=== PATIENT | female | born 1955 | race Caucasian/White ===

== ENCOUNTER 2016-08-23 10:41 | Emergency (ER) | payer OTHER ==
[2016-08-23 10:43] VITALS: BP 151/102; PULSE 116; RESP 20; TEMP 97.5; O2SAT 99
[2016-08-23 11:21] VITALS: BP 137/88
--- NOTE | 2016-08-23 11:52 | PD ---
HPI Chief Complaint: Syncope/Near-Syncope Time Seen by Provider: 11:52 Travel History International Travel<30 days: No Contact w/Intl Traveler<30days: No Traveled to known affect area: No History of Present Illness HPI 60-year-old female presents to the emergency department for evaluation of left lower back pain for 2 days with several episodes of syncope. Patient states that she was on a 3 day cruise and just got off the [place] this morning. States that yesterday afternoon she began to have left lower back pain that progressed into last night. States that she thinks it is secondary to laying at an angle on a hard beachchair and then walking the 9 flights of steps on the cruise ship for 3 days. States that the pain is aggravated with moving from a sitting to standing position. Alleviated with rest. States that last night she was in bed and went to stand up to go to the bathroom when she had the severe sharp pain in her left lower back causing her to become clammy and passed out falling forward hitting the left forehead on the floor. States that she did lose consciousness for approximately 2 seconds. States that she immediately woke up and her tried to help her up to the bathroom when she passed out a second time, after the bathroom he tried to help her to the bed and she passed out a third time. All of these lasting approximately 2 seconds at a time. States that after this episode she had no further episodes of syncope. She states that she never had any lightheadedness, dizziness, nausea, vomiting, chest pain, shortness of breath, numbness or tingling. States that today the pain is still present. She did take ibuprofen with some improvement of symptoms. States that she has had this pain in the past many years ago. Denies any injury or trauma to her lower back. Denies any medical conditions. States that she does have anxiety and whenever she thinks there may be something wrong with her she becomes very anxious. No other complaints. PFSH Past Medical History Medical History: Denies Significant Hx Cardiovascular Problems: Yes (MITRAL VALVE PROLAPSE) Influenza Vaccination: Yes ?: Not Past Surgical History Tonsillectomy: Yes Social History Alcohol Use: Yes (ocas) Tobacco Use: No Substance Use: No Allergies-Medications (Allergen,Severity, Reaction): Coded Allergies: No Known Allergies (Unverified , 08/23/16) Reported Meds & Prescriptions Reported Meds & Active Scripts Active No Active Prescriptions or Reported Medications Review of Systems Except as stated in HPI: all other systems reviewed are Neg Physical Exam Narrative GENERAL: Well-nourished and well-developed pleasant female patient in no acute distress, anxious appearing. SKIN: Warm and dry. 1 cm superficial laceration just above left eyebrow. HEAD: Normocephalic and atraumatic. EYES: No injection, drainage, or hyphema noted. PERRLA. EOMI. ENT: No nasal drainage noted. Oropharynx is clear. NECK: Supple and the trachea is midline. CARDIOVASCULAR: Regular rate and rhythm. RESPIRATORY: Breath sounds are equal bilaterally with no accessory muscle use, wheezing, rhonchi, or crackles. GASTROINTESTINAL: Abdomen is soft, non-tender, and nondistended. MUSCULOSKELETAL: No obvious deformities, swelling, cyanosis, or ecchymosis is present throughout the upper and lower extremities. Patient has full range of motion without any signs of neurovascular compromise. Strength 5/5 upper and lower extremities and equal bilaterally. BACK: Tenderness to palpation of left lumbar paraspinal muscles and over left SI joint. Negative SLR. Nontender without any obvious deformities, bony point tenderness, or crepitus noted throughout the thoracic and lumbar vertebrae. NEUROLOGICAL: Awake, alert, and oriented. Normal speech and gait. Normal finger to nose test. Normal rapid alternating movements. Normal [id number] test. Cranial nerves are grossly intact. Data Data Last Documented VS Vital Signs Date Time Temp Pulse Resp B/P Pulse Ox O2 Delivery O2 Flow Rate FiO2 08/23/16 12:57 77 16 139/74 99 Room Air 08/23/16 10:43 97.5 Orders Electrocardiogram (08/23/16 11:30) Complete Blood Count With Diff (08/23/16 11:51) Comprehensive Metabolic Panel (08/23/16 11:51) Troponin I (08/23/16 11:51) Chest, Single Ap (08/23/16 11:51) Ct Brain W/O Iv Contrast(Rout) (08/23/16 11:51) Ecg Monitoring (08/23/16 11:51) Iv Access Insert/Monitor (08/23/16 11:51) Oximetry (08/23/16 11:51) Ketorolac Inj (Toradol Inj) (08/23/16 12:45) Labs Laboratory Tests Test 08/23/16 12:00 White Blood Count 7.0 TH/MM3 Red Blood Count 4.80 MIL/MM3 Hemoglobin 14.2 GM/DL Hematocrit 42.0 % Mean Corpuscular Volume 87.4 FL Mean Corpuscular Hemoglobin 29.6 PG Mean Corpuscular Hemoglobin 33.9 % Concent Red Cell Distribution Width 13.0 % Platelet Count 303 TH/MM3 Mean Platelet Volume 7.9 FL Neutrophils (%) (Auto) 83.7 % Lymphocytes (%) (Auto) 9.5 % Monocytes (%) (Auto) 6.4 % Eosinophils (%) (Auto) 0.0 % Basophils (%) (Auto) 0.4 % Neutrophils # (Auto) 5.9 TH/MM3 Lymphocytes # (Auto) 0.7 TH/MM3 Monocytes # (Auto) 0.5 TH/MM3 Eosinophils # (Auto) 0.0 TH/MM3 Basophils # (Auto) 0.0 TH/MM3 CBC Comment DIFF FINAL Differential Comment Sodium Level 141 MEQ/L Potassium Level 3.5 MEQ/L Chloride Level 103 MEQ/L Carbon Dioxide Level 29.3 MEQ/L Anion Gap 9 MEQ/L Blood Urea Nitrogen 13 MG/DL Creatinine 0.94 MG/DL Estimat Glomerular Filtration 61 ML/MIN Rate Random Glucose 119 MG/DL Calcium Level 9.1 MG/DL Total Bilirubin 0.7 MG/DL Aspartate Amino Transf 20 U/L (AST/SGOT) Alanine Aminotransferase 23 U/L (ALT/SGPT) Alkaline Phosphatase 68 U/L Troponin I LESS THAN 0.02 NG/ML Total Protein 7.8 GM/DL Albumin 3.9 GM/DL [facility] Medical Decision Making Medical Screen Exam Complete: Yes Emergency Medical Condition: Yes Differential Diagnosis Sciatica versus lumbar radiculopathy versus muscle strain versus muscle spasm versus syncope versus orthostatic versus anxiety versus electrolyte abnormality Narrative Course 60-year-old female presents to the emergency department for evaluation of left lower back pain with 3 episodes of syncope last night while she was in severe pain. Patient is afebrile, vital signs are stable. On physical examination she has some mild left lower back pain no bony point tenderness or abnormalities. No focal neurologic deficits. EKG shows sinus tachycardia with a ventricular rate of 103 beats per minute, no acute ST elevations or depressions. IV access is obtained, labs have been drawn and sent. CBC is unremarkable. CMP is unremarkable. Troponin is less than 0.02. Head CT is negative for any acute abnormalities. Chest x-ray is negative. Patient reassessed and reports improvement of symptoms after Toradol. She has remained stable and without complaint while here in the emergency department. This is sciatica with likely a psychogenic or orthostatic syncope. Discussed supportive care with the patient. She'll be discharged with NSAIDs and muscle relaxers. Advised follow-up with her PCP. Patient verbalizes understanding and agreement with treatment plan. I discussed the case with my attending physician Dr. Grey who is aware of the patients history, physical examination findings, and treatment plan. Diagnosis Primary Impression: Sciatica of left side Additional Impression: Syncope Qualified Code: R55 - Syncope, unspecified syncope type Referrals: Primary Care Physician Patient Instructions: General Instructions, Sciatica (ED), Syncope (ED) Additional Instructions: Performed gentle stretches. Apply ice or heat to help alleviate symptoms. Take medications as prescribed with food and a full glass of water. Do not take Robaxin with alcohol or while driving. Follow-up with your Primary Care Physician. Return to the ED for any acute worsening of symptoms. Med/Other Pt SpecificInfo: Prescription(s) given Scripts Ibuprofen 800 Mg [id number] Mg PO Q8H PRN (Pain/Inflammation) 7 Days Ref 0 Prov:Luis Grey MD 08/23/16 Methocarbamol (Robaxin)500 Mg [id number] Mg PO TID #20 TAB Ref 0 Prov:Luis Grey MD 08/23/16 Disposition: 01 DISCHARGE HOME Condition: Stable [place] rGay Aug 23, 2016 11:52
[2016-08-23 12:20] LABS: AUTOMATED NEUTROPHIL # 5.9 TH/MM3 (1.8-7.7); BASOPHIL % 0.4 % (0.0-2.0); HEMO FLAGS DIFF FINAL; LYMPH % 9.5 % (9.0-44.0); LYMPHOCYTE # 0.7 TH/MM3 (1.0-4.8); MEAN CELL VOLUME 87.4 FL (80.0-100.0); MEAN CORPUSCULAR HEMOGLOBIN 29.6 PG (27.0-34.0); MEAN CORPUSCULAR HGB CONC 33.9 % (32.0-36.0); MONO % 6.4 % (0.0-8.0); NEUT % 83.7 % (16.0-70.0); PLATELET COUNT 303 TH/MM3 (150-450)
[2016-08-23 12:39] LABS: ANION GAP 9 MEQ/L (5-15); AST (GOT) 20 U/L (15-37); BICARBONATE 29.3 MEQ/L (21.0-32.0); BLOOD UREA NITROGEN 13 MG/DL (7-18); CHLORIDE 103 MEQ/L (98-107); GLOMERULAR FILTRATION RATE 61 ML/MIN (>89); POTASSIUM 3.5 MEQ/L (3.5-5.1); SODIUM (NA) 141 MEQ/L (136-145)
[2016-08-23 12:44] LABS: ALKALINE PHOSPHATASE 68 U/L (45-117); ALT (GPT) 23 U/L (10-53); TOTAL BILIRUBIN ADULT 0.7 MG/DL (0.2-1.0)
[2016-08-23] MEDS ORDERED: KETOROLAC TROMETHAMINE 30 MG/ML (IVP) VIAL IV PUSH ONE (12:45)
[2016-08-23 12:57] VITALS: BP 139/74; PULSE 77; RESP 16; O2SAT 99
--- NOTE | 2016-08-23 13:02 | RADRPT ---
EXAM DATE/TIME: 08/23/2016 12:22 [facility] COMPARISON: No previous studies available for comparison. INDICATIONS : Syncopal episode. RADIATION DOSE: 56.35 CTDIvol (mGy) MEDICAL HISTORY : Cardiovascular disease. SURGICAL HISTORY : Tonsillectomy. ENCOUNTER: Initial ACUITY: 1 day PAIN SCALE: 0/10 LOCATION: cranial TECHNIQUE: Multiple contiguous axial images were obtained of the head. Using automated exposure control and adj ustment of the mA and/or kV according to patient size, radiation dose was kept as low as reasonably a chievable to obtain optimal diagnostic quality images. FINDINGS: CEREBRUM: The ventricles are normal for age. No evidence of midline shift, mass lesion, hemorrhage or acute in farction. No extra-axial fluid collections are seen. POSTERIOR FOSSA: The cerebellum and brainstem are intact. The 4th ventricle is midline. The cerebellopontine angle i s unremarkable. EXTRACRANIAL: The visualized portion of the orbits is intact. SKULL: The calvaria is intact. No evidence of skull fracture. CONCLUSION: 1. No acute intracranial abnormality is identified. Gio Lamar MD on August 23, 2016 at 13:00 Board Certified Radiologist. This report was verified electronically.
--- NOTE | 2016-08-23 13:33 | RADRPT ---
EXAM DATE/TIME: 08/23/2016 12:50 [facility] COMPARISON: No previous studies available for comparison. INDICATIONS : Syncope today, pain in back and chest, fell and hit head MEDICAL HISTORY : mitral valve prolapse SURGICAL HISTORY : None. ENCOUNTER: Initial ACUITY: 1 day PAIN SCORE: 5/10 LOCATION: Bilateral chest FINDINGS: A single view of the chest demonstrates the lungs to be symmetrically aerated without evidence of mas s, infiltrate or effusion. The cardiomediastinal contours are unremarkable. Osseous structures are intact. Scoliosis of the thoracolumbar spine is noted. CONCLUSION: No acute disease. Scoliosis of the thoracolumbar spine. Fausto Giordano MD on August 23, 2016 at 13:31 Board Certified Radiologist. This report was verified electronically.
[2016-08-23] MEDS ORDERED: IBUP800T23 PO (13:38)
[2016-08-23] MEDS ORDERED: ROBA500T PO (13:38)
--- NOTE | 2016-08-23 14:15 | EKG ---
Date Performed: 08/23/2016 Time Performed: 11:35:47 PTAGE: 60 years EKG: SINUS TACHYCARDIA MARKED LEFT AXIS DEVIATION ABNORMAL ECG NO PREVIOUS TRACING DOCTOR: Scott Torres Interpretating Date/Time 08/23/2016 14:14:21
== END 2016-08-23 13:55 | disposition home or self-care (01) ==
LOC: NEPC 10:41
DX: M54.32 Sciatica, left side (principal); R55 Syncope and collapse; R94.31 Abnormal electrocardiogram [ECG] [EKG]
CPT/HCPCS: 70450; 71010; 80053; 84484; 85025; 93005; 96374; 99284; J1885